=== PATIENT | female | born 2005 | race Caucasian/White ===

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

== ENCOUNTER 2023-04-26 19:24 | Emergency (ER) | payer SELFPAY ==
[2023-04-26 19:37] VITALS: BP 110/78; PULSE 120; RESP 16; TEMP 36.9; O2SAT 98; BMI 26.5
--- NOTE | 2023-04-26 19:40 | ED_ITS ---
HPI - Headache General: Chief Complaint: Headache Stated Complaint: Migraine, ear pain lightheaded Time Seen by Provider: 04/26/23 19:38 History of Present Illness: Patient comes in today with severe headache starting today. Patient has had 1 prior similar headache several years ago. Patient appears in mild to moderate pain. Patient appears nontoxic. Patient also reports right ear discomfort. Associated symptoms: Reports malaise and nausea; Deny chest pain, fever(s), rash or vomiting Review of Systems General: Reports: 10 or more systems reviewed and unremarkable except in HPI and below Const: Reports: malaise; Denies: fever(s) Eyes: Denies: eye discomfort ENMT: Reports: ear or mastoid pain; Denies: throat pain Card: Denies: chest pain Resp: Denies: dyspnea or productive cough GI: Reports: nausea; Denies: vomiting, diarrhea or constipation : Denies: difficulty voiding Musc: Reports: neck pain; Denies: back pain Skin/Breast: Denies: rash or pruritus Neuro: Reports: headache(s) PFSH ED PFSH: Medical History Anxiety and depression Bipolar disorder (manic depression) Surgical History No pertinent past surgical history Family History Grandmother Diabetes Paternal Denies family history of Colon cancer Ovarian cancer Heart disease Hypercholesteremia Breast cancer Hypertension Uterine cancer Thyroid disease Stroke Social History Substance/Drug Use: never Female Reproductive History: Spontaneous abortions: No Physical Exam Const: COMMON NORMALS: alert HENMT: COMMON NORMALS: normocephalic HEAD & SCALP: normocephalic EXTERNAL AUDITORY CANAL: Abnormal EAC present EAC laterality: right Details: cerumen impaction Neck/C-Spine: COMMON NORMALS: full ROM CERVICAL SPINE: Yes Paracervical muscle tenderness Resp: COMMON NORMALS: normal respiratory effort and clear to auscultation bilaterally AUSCULTATION: clear to auscultation bilaterally Cardio: COMMON NORMALS: regular rate and regular rhythm RATE: regular rate RHYTHM: regular rhythm GI: COMMON NORMALS: Soft to palpation and non-tender PALPATION: Yes Soft to palpation : COMMON NORMALS: Yes no CVA tenderness BLADDER/KIDNEY EXAM: Yes no CVA tenderness Back/Pelvis: COMMON NORMALS: no CVA tenderness and thoracic and lumbar spine normal to inspection Extremity: COMMON NORMALS: no pedal edema Neuro: SENSORIUM/ORIENTATION: Yes alert Skin: COMMON NORMALS: turgor normal GENERAL SKIN EXAM: turgor normal Course Vital Signs: Vital signs: Vital Signs Temperature 98.5 F 04/26/23 19:37 Pulse Rate 120 H 04/26/23 19:37 Respiratory Rate 16 04/26/23 19:37 Blood Pressure 110/78 04/26/23 19:37 Pulse Oximetry 98 04/26/23 19:37 MDM - Headache Medical Decision Making 17-year-old female comes in today with complaints of migraine/headache. Patient also complains of right ear pain. On exam patient has some large amount of cerumen in the right ear canal. Left ear canal is clear. Patient has some mild muscle tenderness to the right paracervical muscles of the neck. Patient has normal range of motion no signs of meningeal's. Vital signs normal except for some mild elevation in pulse. Differential diagnosis includes but not limited to viral syndrome, migraine headache, cerumen impaction, sinusitis. Patient was treated with migraine headache cocktail of 15 mg of ketorolac, 10 mg of metoclopramide, 8 mg of dexamethasone, and 12-1/2 mg of diphenhydramine. This fully resolved patient's headache. Patient was written a prescription for Debrox to use to help remove the wax from the right ear canal. Patient was recommended to follow-up in 3 to 5 days with primary care for recheck of the ear and possible irrigation or removal of wax. Patient stated understanding of care plan need for follow-up or return to the ER for worsening symptoms. Lab Data Laboratory Results HCG, Qual Negative (Negative) 04/26/23 20:07 No radiology studies performed this visit Discharge Plan Discharge Patient Disposition: Home Clinical Impression: Impacted cerumen of right ear Migraine Qualifiers: Migraine type: unspecified Status migrainosus presence: without status migrainosus Intractability: not intractable Qualified Code(s): G43.909 - Migraine, unspecified, not intractable, without status migrainosus Condition: Stable Prescriptions: New Debrox 6.5 % drops 5 drp otic (ear) BID 4 Days Qty: 15 0RF No Action paroxetine HCl [Paxil] 20 mg tablet 20 mg PO DAILY medroxyprogesterone [Depo-Provera] 150 mg/mL suspension IM Seroquel 100 mg Tablet 100 mg PO BEDTIME Discharge Orders: Discharge ED (Routine); Ordered 04/26/23 Ordered By: Anant Lao Referrals: Robert Monroe MD [Primary Care Provider] - Discharge Diet: Usual diet Discharge Activity: Increase activity as tolerated Patient Instructions: Cerumen Impaction, Migraine Headache (ED) Activity Restrictions/Additional Instructions: Continue eardrops for wax removal, 5 drops to the right ear 2 times a day for the next 4 days. You will notice yellowish to orange each drainage from the ear. Have the ear reevaluated in 1 week. Follow-up with primary care for further evaluation and treatment of recurrent headaches. Drink plenty of water and fluids. Return to ER for new concerns. Coding Level of Care Code ED Outside Food Server for Samanta Padilla
[2023-04-26] MEDS: diphenhydrAMINE 50 mg/mL SDV 1mL 12.5 MG IVP (20:20)
[2023-04-26] MEDS: dexamethasone 4 mg/mL INJ 8 MG IVP (20:22)
[2023-04-26] MEDS: ketorolac 30 mg/mL INJ 15 MG IVP (20:24)
[2023-04-26 20:25] LABS: HCG, Serum Qual Negative (Negative)
[2023-04-26] MEDS: metoclopramide 5 mg/mL SDV 2 mL 10 MG IVP (20:25)
[2023-04-26] MEDS: sodium chloride 0.9% 250 ML IV (20:25)
== END 2023-04-26 21:28 | disposition home or self-care (01) ==
PROVIDERS: Emergency Provider Nurse Practitioner Family; PCP Family Medicine
DX: H61.21 Impacted cerumen, right ear (principal); G43.909 Migraine, unspecified, not intractable, without status migrainosus
CPT/HCPCS: 84703; 96361; 96374; 96375; 99285; J1100; J1200; J1885; J2765; J7050